=== PATIENT | female | born 1990 | race African-American/Black ===

== ENCOUNTER 2016-05-18 16:49 | Outpatient (CLI) | payer OTHER ==
[~2016-05-18] VITALS: Ht 162.6 cm; Wt 105.0 kg
[2016-05-18 17:00] VITALS: BP 132/79
[2016-05-18 18:13] VITALS: BP 122/82
== END 2016-05-18 18:15 | disposition home or self-care (01) ==
LOC: M LDO 16:49
PROVIDERS: ATTEND Obstetrics & Gynecology
DX: O99.89 Other specified diseases and conditions complicating pregnancy, childbirth and the puerperium (principal); Z3A.25 25 weeks gestation of pregnancy; R19.7 Diarrhea, unspecified; R10.9 Unspecified abdominal pain; M54.9 Dorsalgia, unspecified; O99.212 Obesity complicating pregnancy, second trimester; O21.9 Vomiting of pregnancy, unspecified